=== PATIENT | male | born 1980 | race Caucasian/White ===

== ENCOUNTER 2018-12-06 00:12 | Emergency (ER) | payer OTHER ==
[2018-12-06] MEDS: DIPHTH/TET/ACEL PERTUSS (ADULT) 0.5 ML VIAL IM* (05:10)
[2018-12-06] MEDS: IBUPROFEN 800 MG TAB PO (05:11)
== END 2018-12-06 06:49 | disposition left against medical advice (07) ==
LOC: FTE 00:12
DX: S20.219A Contusion of unspecified front wall of thorax, initial encounter (principal); S70.01XA Contusion of right hip, initial encounter; S70.02XA Contusion of left hip, initial encounter; I10 Essential (primary) hypertension; E11.9 Type 2 diabetes mellitus without complications; F17.210 Nicotine dependence, cigarettes, uncomplicated; S30.810A Abrasion of lower back and pelvis, initial encounter; V86.56XA Driver of dirt bike or motor/cross bike injured in nontraffic accident, initial encounter; Y92.9 Unspecified place or not applicable; Z23 Encounter for immunization
CPT/HCPCS: 71046; 73520; 90471; 90715; 99284-25